=== PATIENT | female | born 1965 | race Caucasian/White ===

== ENCOUNTER 2016-08-22 15:56 | Emergency (ER) | payer BC ==
[~2016-08-22] VITALS: Ht 149.9 cm; Wt 94.2 kg
[~2016-08-22 15:56] MED LIST: ADULT LOW DOSE81 M1 PO; AMARYL2 MG PO; APTIOM800 MG PO; ASPIR-LOW81 MG PO; BENZONATATE100 MG PO; BUSPAR5 MG PO; BUTALB-APAP-CA1 EACH PO; CIPRO500 MG PO; FENOFIBRATE200 M1 PO; FIORICET,ESG1 TABLET PO; FYCOMPA PO; FYCOMPA6 MG PO; GABAPENTIN300 MG PO; GLIMEPIRIDE1 MG PO; GLIMEPIRIDE4 MG PO; GLUCOPHAGE500 MG PO; IMDUR30 MG PO; JANUVIA25 M1 PO; KEPPRA1000 MG PO; KEPPRA500 MG PO; KEPPRA750 MG PO; LAMICTAL200 MG PO; LAMOTRIGINE200 MG PO; LEXAPRO10 MG PO; LEXAPRO20 MG PO; LISINOPRIL2.5 MG PO; LOVASTATIN40 MG PO; METFORMIN HCL1000 MG PO; METRONIDAZOLE500 MG PO; MEVACOR40 MG PO; MOTRIN600 MG PO; NAPROXEN500 MG PO; NEXIUM40 MG PO; NORCO 5/3251 TABLET PO; OMEPRAZOLE40 M1 PO; ONE DAILY MULT1 EACH PO; PAROXETINE HCL20 MG PO; PROAIR HFA8.5 GM IH; RANITIDINE HCL150 MG PO; TOPAMAX100 MG PO; TOPAMAX200 MG PO; VESICARE5 MG PO; VIMPAT200 MG PO; ZOFRAN4 MG PO
[2016-08-22 16:46] LABS: EOSINOPHIL (%) 1.6 % (0-5); EOSINOPHIL COUNT 0.2 K/uL (0-0.3); HEMATOCRIT 38.1 % (36.0-46.0); IMMATURE GRANULOCYTE (%) 0.2 % (0.0-0.7); IMMATURE GRANULOCYTE COUNT 0.2 K/uL; LYMPHOCYTE COUNT 2.5 K/uL (1.0-2.8); MCH 27.7 PG (29.0-34.0); MCHC 33.6 G/DL (30.0-36.0); MCV 82.5 FL (83-99); MEAN PLAT.VOLUME 9.8 uM^3 (9.5-12.4); MONOCYTE (%) 6.7 % (3-12); MONOCYTE COUNT 0.6 K/uL (0-0.8); NEUTROPHIL (%) 64.2 % (45-76); NEUTROPHIL COUNT 5.9 K/uL (1.8-6.4); PLATELET COUNT 270 K/uL (156-360); RBC DIS.WIDTH-CV 13.2 % (11.8-14.6); RBC DIS.WIDTH-SD 38.6 % (39-53); RED BLOOD COUNT 4.62 M/uL (3.80-5.20); WHITE BLOOD COUNT 9.3 K/uL (4.1-10.2)
[2016-08-22 16:56] LABS: CHLORIDE 103 mEq/L (99-109); POTASSIUM 4.4 mEq/L (3.7-5.4); SODIUM 135 mEq/L (136-147)
[2016-08-22 17:00] LABS: ANION GAP 11 MEQ/L (2-14); TOTAL BILIRUBIN 0.2 mg/dL (0.0-1.0)
[2016-08-22 17:02] LABS: ALKALINE PHOSPHATASE 75 IU/L (3-129); GFR ESTIMATE (CALCULATED) > 59 mL/min/
[2016-08-22 17:03] LABS: UREA NITROGEN (BUN) 11 mg/dL (9-23)
[2016-08-22 17:09] LABS: GLUCOSE 518 mg/dL (70-99)
[2016-08-22 17:11] LABS: QUANTITATIVE HCG 4.4 MIU/ML
[2016-08-22 17:41] LABS: ADD MIUA? NO; BILIRUBIN NEGATIVE; BLOOD NEGATIVE; COLOR YELLOW ((YELLOW)); GLUCOSE (STRIP) >=500; KETONES NEGATIVE; LEUKOCYTES NEGATIVE; NITRITE NEGATIVE; PROTEIN (STRIP) NEGATIVE; UCUL ADDED? NO; UROBILINOGEN 0.2 MG/DL (0.2-1.0)
[2016-08-22 19:48] VITALS: BP 142/70
[2016-08-23 08:58] LABS: POINT-OF-CARE METER ID UU13113778
[2016-08-23 08:58] LABS: POINT-OF-CARE METER ID UU13113702
== END 2016-08-22 19:49 | disposition home or self-care (01) ==
LOC: EME 15:56
PROVIDERS: Emergency Medicine; Nurse Practitioner Family
DX: E11.65 Type 2 diabetes mellitus with hyperglycemia (principal); Z79.4 Long term (current) use of insulin; I10 Essential (primary) hypertension; Z79.82 Long term (current) use of aspirin
CPT/HCPCS: 80053; 81003; 82009; 82010; 82948; 84702; 85025; 99281; 99285; J7030

== ENCOUNTER 2016-08-24 21:26 | Emergency (ER) | payer BC ==
[~2016-08-24] VITALS: Ht 154.9 cm; Wt 94.3 kg
[2016-08-24 21:43] LABS: HEMATOCRIT 38.6 % (36.0-46.0); MCH 27.3 PG (29.0-34.0); MCHC 32.9 G/DL (30.0-36.0); MCV 82.8 FL (83-99); MEAN PLAT.VOLUME 9.6 uM^3 (9.5-12.4); PLATELET COUNT 224 K/uL (156-360); RBC DIS.WIDTH-CV 13.3 % (11.8-14.6); RED BLOOD COUNT 4.66 M/uL (3.80-5.20); WHITE BLOOD COUNT 8.5 K/uL (4.1-10.2)
[2016-08-24 21:55] LABS: CHLORIDE 105 mEq/L (99-109); POTASSIUM 4.7 mEq/L (3.7-5.4); SODIUM 136 mEq/L (136-147)
[2016-08-24 21:57] LABS: GLUCOSE 313 mg/dL (70-99)
[2016-08-24 21:57] LABS: POINT-OF-CARE METER ID UU13113702
[2016-08-24 21:58] LABS: ANION GAP 11 MEQ/L (2-14)
[2016-08-24 22:01] LABS: GFR ESTIMATE (CALCULATED) > 59 mL/min/
[2016-08-24 22:02] LABS: UREA NITROGEN (BUN) 15 mg/dL (9-23)
[2016-08-24 22:18] VITALS: BP 135/72
== END 2016-08-24 22:19 | disposition home or self-care (01) ==
LOC: EME 21:26
PROVIDERS: Emergency Medicine
DX: R56.9 Unspecified convulsions (principal); E11.9 Type 2 diabetes mellitus without complications; J45.909 Unspecified asthma, uncomplicated; I10 Essential (primary) hypertension; I25.2 Old myocardial infarction; K21.9 Gastro-esophageal reflux disease without esophagitis; Z79.4 Long term (current) use of insulin
CPT/HCPCS: 80048; 81003; 82948; 85027; 99281; 99285

== ENCOUNTER 2016-11-26 13:32 | Emergency (ER) | payer BC, OTHER ==
[~2016-11-26] VITALS: Ht 149.9 cm; Wt 88.4 kg
[2016-11-26 15:06] VITALS: BP 129/56
== END 2016-11-26 15:14 | disposition home or self-care (01) ==
LOC: EME 13:32
DX: G43.909 Migraine, unspecified, not intractable, without status migrainosus (principal); E11.9 Type 2 diabetes mellitus without complications; I10 Essential (primary) hypertension; I25.2 Old myocardial infarction; G40.909 Epilepsy, unspecified, not intractable, without status epilepticus; Z79.84 Long term (current) use of oral hypoglycemic drugs; Z88.8 Allergy status to other drugs, medicaments and biological substances
CPT/HCPCS: 99281; 99284; J1885; J7030

== ENCOUNTER 2016-12-11 14:34 | Observation (INO) | payer BC, OTHER ==
[~2016-12-11] VITALS: Ht 149.9 cm; Wt 89.5 kg
[2016-12-11 15:59] LABS: EOSINOPHIL (%) 2.4 % (0-5); EOSINOPHIL COUNT 0.2 K/uL (0-0.3); HEMATOCRIT 37.3 % (36.0-46.0); IMMATURE GRANULOCYTE (%) 0.4 % (0.0-0.7); INSTRUMENT ABS NEUTROPHIL CT 3.7 K/uL; LYMPHOCYTE COUNT 2.4 K/uL (1.0-2.8); MCH 26.9 PG (29.0-34.0); MCHC 31.6 G/DL (30.0-36.0); MEAN PLAT.VOLUME 9.5 uM^3 (9.5-12.4); MONOCYTE (%) 5.9 % (3-12); MONOCYTE COUNT 0.4 K/uL (0-0.8); NEUTROPHIL (%) 55.4 % (45-76); NEUTROPHIL COUNT 3.7 K/uL (1.8-6.4); PLATELET COUNT 240 K/uL (156-360); RBC DIS.WIDTH-CV 13.4 % (11.8-14.6); RBC DIS.WIDTH-SD 41.6 % (39-53); RED BLOOD COUNT 4.39 M/uL (3.80-5.20); WHITE BLOOD COUNT 6.7 K/uL (4.1-10.2)
[2016-12-11 16:09] LABS: CHLORIDE 109 mEq/L (99-109); POTASSIUM 3.7 mEq/L (3.7-5.4); SODIUM 139 mEq/L (136-147)
[2016-12-11 16:11] LABS: GLUCOSE 116 mg/dL (70-99)
[2016-12-11 16:12] LABS: ANION GAP 8 MEQ/L (2-14)
[2016-12-11 16:15] LABS: GFR ESTIMATE (CALCULATED) > 59 mL/min/
[2016-12-11 16:16] LABS: UREA NITROGEN (BUN) 16 mg/dL (9-23)
[2016-12-11 16:21] LABS: TROP-I INTERPRETATION NEGATIVE; TROPONIN-I < 0.01 ng/mL (0.0-0.30)
[2016-12-11] MEDS ORDERED: KEPPRA750 MG PO (17:50)
[2016-12-11] MEDS ORDERED: JANUMET 50/11 TABLET PO (17:52)
[2016-12-11] MEDS ORDERED: HUMALOG100 UNIT/2 SC (17:52)
[2016-12-11] MEDS ORDERED: LANTUS 3 M100 UNITS1 SC (17:53)
[2016-12-11] MEDS ORDERED: KEPPRA1000 MG PO (17:53)
[2016-12-11 20:01] VITALS: BP 119/60
[2016-12-11 22:27] LABS: TROP-I INTERPRETATION NEGATIVE; TROPONIN-I < 0.01 ng/mL (0.0-0.30)
[2016-12-11 23:11] LABS: POINT-OF-CARE METER ID UU13113700
[2016-12-11 23:50] VITALS: BP 106/57
[2016-12-12 04:45] VITALS: BP 100/53
[2016-12-12 07:16] VITALS: BP 95/54
[2016-12-12 07:18] LABS: HEMATOCRIT 36.6 % (36.0-46.0); MCH 26.8 PG (29.0-34.0); MCHC 30.9 G/DL (30.0-36.0); MCV 86.9 FL (83-99); MEAN PLAT.VOLUME 9.5 uM^3 (9.5-12.4); PLATELET COUNT 226 K/uL (156-360); RBC DIS.WIDTH-CV 13.5 % (11.8-14.6); RBC DIS.WIDTH-SD 43.3 % (39-53); RED BLOOD COUNT 4.21 M/uL (3.80-5.20); WHITE BLOOD COUNT 6.7 K/uL (4.1-10.2)
[2016-12-12 07:55] LABS: ANION GAP 8 MEQ/L (2-14); CHLORIDE 109 MEQ/L (99-109); GFR ESTIMATE (CALCULATED) > 59 mL/min/; GLUCOSE 136 mg/dL (70-99); POTASSIUM 4.1 MEQ/L (3.7-5.4); SAMPLE HEMOLYSIS CHECK 0; SAMPLE ICTERIC CHECK 0; SAMPLE LIPEMIA CHECK 0; SODIUM 142 MEQ/L (136-147); UREA NITROGEN (BUN) 16 mg/dL (9-23)
[2016-12-12 08:26] LABS: POINT-OF-CARE METER ID UU13113700
[2016-12-12 08:39] LABS: TROP-I INTERPRETATION NEGATIVE; TROPONIN-I < 0.01 ng/mL (0.0-0.30)
[2016-12-12 12:34] LABS: POINT-OF-CARE METER ID UU13113700
[2016-12-12 12:53] VITALS: BP 99/52
== END 2016-12-12 15:06 | disposition home or self-care (01) ==
LOC: EME 14:34 → EDOF 17:57 → 5WEST 17:57 → EDOF 17:57 → 5WEST 19:42
PROVIDERS: Emergency Medicine; Hospitalist; Internal Medicine
DX: R07.9 Chest pain, unspecified (principal); E78.5 Hyperlipidemia, unspecified; E11.9 Type 2 diabetes mellitus without complications; G40.909 Epilepsy, unspecified, not intractable, without status epilepticus; G43.909 Migraine, unspecified, not intractable, without status migrainosus; E66.9 Obesity, unspecified; Z68.39 Body mass index [BMI] 39.0-39.9, adult; I25.10 Atherosclerotic heart disease of native coronary artery without angina pectoris; I25.2 Old myocardial infarction; F41.9 Anxiety disorder, unspecified; F32.9 Major depressive disorder, single episode, unspecified; J45.909 Unspecified asthma, uncomplicated; I11.9 Hypertensive heart disease without heart failure; K21.9 Gastro-esophageal reflux disease without esophagitis
CPT/HCPCS: 71010; 80048; 82948; 84484; 85025; 85027; 93005; 99281; 99285; G0378; J1650; J3010

== ENCOUNTER 2017-01-25 14:11 | Emergency (ER) | payer BC, OTHER ==
[~2017-01-25] VITALS: Ht 149.9 cm; Wt 91.0 kg
[~2017-01-25 14:11] MED LIST changes: +HUMALOG100 UNIT/2 SC; +JANUMET 50/11 TABLET PO; +LANTUS 3 M100 UNITS1 SC
[2017-01-25 14:26] LABS: POINT-OF-CARE METER ID UU13113778
[2017-01-25 14:57] LABS: HEMATOCRIT 39.2 % (36.0-46.0); MCH 27.6 PG (29.0-34.0); MCHC 32.1 G/DL (30.0-36.0); MEAN PLAT.VOLUME 9.6 uM^3 (9.5-12.4); PLATELET COUNT 277 K/uL (156-360); RBC DIS.WIDTH-CV 13.2 % (11.8-14.6); RBC DIS.WIDTH-SD 41.5 % (39-53); RED BLOOD COUNT 4.56 M/uL (3.80-5.20); WHITE BLOOD COUNT 10.4 K/uL (4.1-10.2)
[2017-01-25 15:09] LABS: CHLORIDE 100 mEq/L (99-109); POTASSIUM 4.8 mEq/L (3.7-5.4); SODIUM 133 mEq/L (136-147)
[2017-01-25 15:11] LABS: GLUCOSE 338 mg/dL (70-99)
[2017-01-25 15:12] LABS: ANION GAP 8 MEQ/L (2-14)
[2017-01-25 15:13] LABS: TOTAL BILIRUBIN 0.3 mg/dL (0.0-1.0)
[2017-01-25 15:14] LABS: ALKALINE PHOSPHATASE 56 IU/L (3-129)
[2017-01-25 15:15] LABS: GFR ESTIMATE (CALCULATED) > 59 mL/min/
[2017-01-25 15:16] LABS: UREA NITROGEN (BUN) 16 mg/dL (9-23)
[2017-01-25 15:43] LABS: ADD MIUA? YES; BILIRUBIN NEGATIVE; BLOOD NEGATIVE; COLOR YELLOW ((YELLOW)); GLUCOSE (STRIP) >=500; KETONES NEGATIVE; LEUKOCYTES MODERATE; NITRITE NEGATIVE; PROTEIN (STRIP) 30; SPECIFIC GRAVITY 1.023 (1.000-1.030); UROBILINOGEN 0.2 MG/DL (0.2-1.0)
[2017-01-25 15:43] LABS: CARBON DIOXIDE (BICARBONATE) 29.2 MEQ/L (20-31)
[2017-01-25 15:45] LABS: POINT-OF-CARE METER ID UU13113800
[2017-01-25 16:26] LABS: BACTERIA NONE SEEN /HPF; EPITHELIAL CELLS 1+ /HPF; MUCUS NONE SEEN /LPF; RED BLOOD CELLS 0-5 /HPF (0-5); UCUL ADDED? NO
[2017-01-25 17:08] LABS: POINT-OF-CARE METER ID UU13113800
[2017-01-25 18:08] VITALS: BP 145/95
== END 2017-01-25 18:09 | disposition home or self-care (01) ==
LOC: EME 14:11
PROVIDERS: Physician Assistant
DX: E11.65 Type 2 diabetes mellitus with hyperglycemia (principal); G40.909 Epilepsy, unspecified, not intractable, without status epilepticus; M79.604 Pain in right leg; Z79.4 Long term (current) use of insulin; I10 Essential (primary) hypertension; I25.2 Old myocardial infarction; J45.909 Unspecified asthma, uncomplicated; F32.9 Major depressive disorder, single episode, unspecified; K21.9 Gastro-esophageal reflux disease without esophagitis
CPT/HCPCS: 71020; 80048 91; 80053; 81003; 82010; 82803; 82948; 83036; 84100; 85027; 99281; 99284; J2405; J7030

== ENCOUNTER 2017-02-19 14:43 | Emergency (ER) | payer BC, OTHER ==
[~2017-02-19] VITALS: Ht 149.9 cm; Wt 91.4 kg
[2017-02-19 15:04] LABS: POINT-OF-CARE METER ID UU13113747
[2017-02-19 15:30] LABS: EOSINOPHIL (%) 2.7 % (0-5); EOSINOPHIL COUNT 0.2 K/uL (0-0.3); HEMATOCRIT 34.2 % (36.0-46.0); IMMATURE GRANULOCYTE (%) 0.9 % (0.0-0.7); IMMATURE GRANULOCYTE COUNT 0.1 K/uL; INSTRUMENT ABS NEUTROPHIL CT 3.9 K/uL; LYMPHOCYTE COUNT 1.8 K/uL (1.0-2.8); MCH 27.5 PG (29.0-34.0); MCHC 31.9 G/DL (30.0-36.0); MCV 86.4 FL (83-99); MEAN PLAT.VOLUME 9.5 uM^3 (9.5-12.4); MONOCYTE (%) 7.4 % (3-12); MONOCYTE COUNT 0.5 K/uL (0-0.8); NEUTROPHIL (%) 60.8 % (45-76); NEUTROPHIL COUNT 3.9 K/uL (1.8-6.4); PLATELET COUNT 197 K/uL (156-360); RBC DIS.WIDTH-CV 13.4 % (11.8-14.6); RED BLOOD COUNT 3.96 M/uL (3.80-5.20); WHITE BLOOD COUNT 6.4 K/uL (4.1-10.2)
[2017-02-19 15:42] LABS: CHLORIDE 106 mEq/L (99-109); POTASSIUM 3.8 mEq/L (3.7-5.4); SODIUM 135 mEq/L (136-147)
[2017-02-19 15:44] LABS: GLUCOSE 360 mg/dL (70-99)
[2017-02-19 15:46] LABS: ANION GAP 9 MEQ/L (2-14); TOTAL BILIRUBIN 0.3 mg/dL (0.0-1.0)
[2017-02-19 15:48] LABS: ADD MIUA? YES; BILIRUBIN NEGATIVE; BLOOD NEGATIVE; COLOR YELLOW ((YELLOW)); GLUCOSE (STRIP) >=500; KETONES NEGATIVE; LEUKOCYTES TRACE; NITRITE NEGATIVE; PROTEIN (STRIP) NEGATIVE; SPECIFIC GRAVITY 1.018 (1.000-1.030); UROBILINOGEN 0.2 MG/DL (0.2-1.0)
[2017-02-19 15:48] LABS: ALKALINE PHOSPHATASE 49 IU/L (3-129); GFR ESTIMATE (CALCULATED) > 59 mL/min/
[2017-02-19 15:49] LABS: UREA NITROGEN (BUN) 14 mg/dL (9-23)
[2017-02-19 15:59] LABS: BACTERIA NONE SEEN /HPF; EPITHELIAL CELLS 1+ /HPF; MUCUS TRACE /LPF; RED BLOOD CELLS 0-5 /HPF (0-5); UCUL ADDED? NO; WHITE BLOOD CELLS 0-5 /HPF (0-5)
[2017-02-19 17:06] LABS: POINT-OF-CARE METER ID UU13113747
[2017-02-19 18:11] VITALS: BP 120/61
== END 2017-02-19 18:12 | disposition home or self-care (01) ==
LOC: EME 14:43
PROVIDERS: Emergency Medicine
DX: G40.909 Epilepsy, unspecified, not intractable, without status epilepticus (principal); E11.65 Type 2 diabetes mellitus with hyperglycemia; Z79.4 Long term (current) use of insulin; I10 Essential (primary) hypertension; Z79.82 Long term (current) use of aspirin
CPT/HCPCS: 80053; 81003; 82948; 85025; 99281; 99284

== ENCOUNTER 2017-03-06 13:33 | Emergency (ER) | payer BC, OTHER ==
[~2017-03-06] VITALS: Ht 149.9 cm; Wt 89.7 kg
[2017-03-06 14:44] LABS: MCH 27.3 PG (29.0-34.0); MCHC 31.6 G/DL (30.0-36.0); MCV 86.4 FL (83-99); MEAN PLAT.VOLUME 9.7 uM^3 (9.5-12.4); PLATELET COUNT 208 K/uL (156-360); RBC DIS.WIDTH-CV 13.2 % (11.8-14.6); RBC DIS.WIDTH-SD 41.4 % (39-53); RED BLOOD COUNT 4.28 M/uL (3.80-5.20); WHITE BLOOD COUNT 7.3 K/uL (4.1-10.2)
[2017-03-06 14:49] LABS: POINT-OF-CARE METER ID UU13113747
[2017-03-06 14:54] LABS: CHLORIDE 107 mEq/L (99-109); POTASSIUM 4.3 mEq/L (3.7-5.4); SODIUM 138 mEq/L (136-147)
[2017-03-06 14:57] LABS: ANION GAP 10 MEQ/L (2-14)
[2017-03-06 14:59] LABS: GFR ESTIMATE (CALCULATED) > 59 mL/min/
[2017-03-06 15:00] LABS: UREA NITROGEN (BUN) 9 mg/dL (9-23)
[2017-03-06 15:12] LABS: GLUCOSE 402 mg/dL (70-99)
[2017-03-06 16:50] LABS: POINT-OF-CARE METER ID UU13113747
[2017-03-06 17:05] VITALS: BP 142/87
== END 2017-03-06 17:21 | disposition home or self-care (01) ==
LOC: EME 13:33
PROVIDERS: Emergency Medicine
DX: E11.65 Type 2 diabetes mellitus with hyperglycemia (principal); G40.909 Epilepsy, unspecified, not intractable, without status epilepticus; I10 Essential (primary) hypertension; K21.9 Gastro-esophageal reflux disease without esophagitis; Z79.4 Long term (current) use of insulin
CPT/HCPCS: 80048; 82948; 85027; 99281; 99285; J7030

== ENCOUNTER 2017-03-31 16:49 | Emergency (ER) | payer BC, OTHER ==
[~2017-03-31] VITALS: Ht 149.9 cm; Wt 89.5 kg
[2017-03-31 18:23] LABS: HEMATOCRIT 38.9 % (36.0-46.0); MCH 27.2 PG (29.0-34.0); MCHC 31.6 G/DL (30.0-36.0); MCV 86.1 FL (83-99); MEAN PLAT.VOLUME 9.2 uM^3 (9.5-12.4); PLATELET COUNT 258 K/uL (156-360); RBC DIS.WIDTH-CV 13.2 % (11.8-14.6); RBC DIS.WIDTH-SD 40.9 % (39-53); RED BLOOD COUNT 4.52 M/uL (3.80-5.20); WHITE BLOOD COUNT 9.6 K/uL (4.1-10.2)
[2017-03-31 18:33] LABS: CHLORIDE 109 mEq/L (99-109); SODIUM 141 mEq/L (136-147)
[2017-03-31 18:35] LABS: GLUCOSE 102 mg/dL (70-99)
[2017-03-31 18:36] LABS: ANION GAP 12 MEQ/L (2-14)
[2017-03-31 18:37] LABS: TOTAL BILIRUBIN 0.3 mg/dL (0.0-1.0)
[2017-03-31 18:38] LABS: ALKALINE PHOSPHATASE 44 IU/L (3-129)
[2017-03-31 18:39] LABS: GFR ESTIMATE (CALCULATED) 51 mL/min/
[2017-03-31 18:40] LABS: UREA NITROGEN (BUN) 16 mg/dL (9-23)
[2017-03-31 18:43] LABS: TROP-I INTERPRETATION NEGATIVE; TROPONIN-I < 0.01 ng/mL (0.0-0.30)
[2017-03-31 21:57] LABS: TROP-I INTERPRETATION NEGATIVE; TROPONIN-I < 0.01 ng/mL (0.0-0.30)
[2017-03-31] MEDS ORDERED: ULTRACET1 TABLET PO (22:47)
[2017-03-31 22:48] VITALS: BP 121/80
[2017-03-31] MEDS ORDERED: NAPROXEN500 MG PO (22:54)
== END 2017-03-31 23:00 | disposition home or self-care (01) ==
LOC: EME 16:49
PROVIDERS: Nurse Practitioner Family; Physician Assistant Medical
DX: R07.9 Chest pain, unspecified (principal); Q24.5 Malformation of coronary vessels; E11.9 Type 2 diabetes mellitus without complications; I10 Essential (primary) hypertension; K21.9 Gastro-esophageal reflux disease without esophagitis; R56.9 Unspecified convulsions; Z79.4 Long term (current) use of insulin; Z79.82 Long term (current) use of aspirin
CPT/HCPCS: 71020; 80053; 84484; 85027; 93005; 99281; 99284; J2270

== ENCOUNTER 2017-10-11 20:04 | Emergency (ER) | payer BC, OTHER ==
[~2017-10-11] VITALS: Ht 149.9 cm; Wt 83.6 kg
[~2017-10-11 20:04] MED LIST changes: +PREDNISONE50 MG PO; +TUSSIONEX PENN473 ML PO; +ULTRACET1 TABLET PO
[2017-10-11 21:28] LABS: APPEARANCE CLEAR ((CLEAR)); BILIRUBIN NEGATIVE; BLOOD NEGATIVE; COLOR YELLOW ((YELLOW)); GLUCOSE (STRIP) NEGATIVE; KETONES NEGATIVE; LEUKOCYTES MODERATE; NITRITE NEGATIVE; PROTEIN (STRIP) NEGATIVE; SPECIFIC GRAVITY 1.011 (1.000-1.030); UROBILINOGEN 0.2 MG/DL (0.2-1.0)
[2017-10-11 21:30] LABS: CHLORIDE 109 mEq/L (99-109); POTASSIUM 3.6 mEq/L (3.7-5.4); SODIUM 141 mEq/L (136-147)
[2017-10-11 21:32] LABS: BACTERIA RARE /HPF; EPITHELIAL CELLS 1+ /HPF; MUCUS TRACE /LPF; UCUL ADDED? YES; WHITE BLOOD CELLS 20-30 /HPF (0-5)
[2017-10-11 21:32] LABS: GLUCOSE 105 mg/dL (70-99)
[2017-10-11 21:36] LABS: CREATININE 0.8 mg/dL (0.6-1.3); GFR ESTIMATE (CALCULATED) > 59 mL/min/
[2017-10-11 21:37] LABS: UREA NITROGEN (BUN) 14 mg/dL (9-23)
[2017-10-11] MEDS ORDERED: MACROBID100 MG PO (22:00)
[2017-10-11 23:15] VITALS: BP 134/79
== END 2017-10-11 23:16 | disposition home or self-care (01) ==
LOC: EME 20:04
PROVIDERS: Emergency Medicine
DX: R56.9 Unspecified convulsions (principal); N39.0 Urinary tract infection, site not specified; I10 Essential (primary) hypertension; E11.9 Type 2 diabetes mellitus without complications; Z79.4 Long term (current) use of insulin; K21.9 Gastro-esophageal reflux disease without esophagitis; G43.909 Migraine, unspecified, not intractable, without status migrainosus; F32.9 Major depressive disorder, single episode, unspecified; F41.9 Anxiety disorder, unspecified; I25.2 Old myocardial infarction; Z79.82 Long term (current) use of aspirin; Z88.8 Allergy status to other drugs, medicaments and biological substances
CPT/HCPCS: 70450; 80048; 81003; 87086; 99281; 99285

== ENCOUNTER 2017-11-02 17:33 | Emergency (ER) | payer OTHER, BC ==
[~2017-11-02] VITALS: Ht 149.9 cm; Wt 81.8 kg
[~2017-11-02 17:33] MED LIST changes: +MACROBID100 MG PO
[2017-11-02 20:56] VITALS: BP 103/59
== END 2017-11-02 20:58 | disposition home or self-care (01) ==
LOC: EME 17:33
DX: S30.0XXA Contusion of lower back and pelvis, initial encounter (principal); M54.2 Cervicalgia; V49.50XA Passenger injured in collision with unspecified motor vehicles in traffic accident, initial encounter; Y92.410 Unspecified street and highway as the place of occurrence of the external cause; I25.2 Old myocardial infarction; K21.9 Gastro-esophageal reflux disease without esophagitis; I10 Essential (primary) hypertension; F41.9 Anxiety disorder, unspecified; F32.9 Major depressive disorder, single episode, unspecified; E11.9 Type 2 diabetes mellitus without complications; G40.909 Epilepsy, unspecified, not intractable, without status epilepticus; Z79.4 Long term (current) use of insulin; Z79.82 Long term (current) use of aspirin; Z88.8 Allergy status to other drugs, medicaments and biological substances
CPT/HCPCS: 70450; 72100; 72125; 99281; 99284

== ENCOUNTER 2017-12-28 17:01 | Inpatient (IN) | payer BC, OTHER ==
[~2017-12-28] VITALS: Ht 149.9 cm; Wt 83.2 kg
[2017-12-28 17:54] LABS: AMPHETAMINE NEGATIVE (500 ng/mL); BARBITURATES PRESUMPTIVE POSITIVE (200 ng/mL); BENZODIAZEPINES NEGATIVE (150 ng/mL); BUPRENORPHINE NEGATIVE (10 ng/mL); COCAINE NEGATIVE (150 ng/mL); METHADONE NEGATIVE (200 ng/mL); METHAMPHETAMINE NEGATIVE (500 ng/mL); OPIATES (MORPHINE) NEGATIVE (100 ng/mL); OXYCODONE NEGATIVE (100 ng/mL); PHENCYCLIDINE NEGATIVE (25 ng/mL); PROPOXYPHENE NEGATIVE (300 ng/mL); THC CANNABINOIDS NEGATIVE (50 ng/mL); TRICYCLIC ANTIDEPRESSANTS NEGATIVE (300 ng/mL)
[2017-12-28 18:07] LABS: HEMATOCRIT 40.9 % (36.0-46.0); HEMOGLOBIN 13.3 G/DL (11.9-15.5); MCH 28.9 PG (29.0-34.0); MCHC 32.5 G/DL (30.0-36.0); MCV 88.7 FL (83-99); PLATELET COUNT 305 K/uL (156-360); RBC DIS.WIDTH-CV 13.3 % (11.8-14.6); RBC DIS.WIDTH-SD 43.3 % (39-53); RED BLOOD COUNT 4.61 M/uL (3.80-5.20); WHITE BLOOD COUNT 9.6 K/uL (4.1-10.2)
[2017-12-28 18:15] LABS: CHLORIDE 106 mEq/L (99-109); POTASSIUM 4.1 mEq/L (3.7-5.4)
[2017-12-28 18:16] LABS: SODIUM 139 mEq/L (136-147)
[2017-12-28 18:17] LABS: GLUCOSE 184 mg/dL (70-99)
[2017-12-28 18:20] LABS: SERUM ETHYL ALCOHOL < 10 mg/dL
[2017-12-28 18:21] LABS: CREATININE 1.1 mg/dL (0.6-1.3); GFR ESTIMATE (CALCULATED) 56 mL/min/
[2017-12-28 18:22] LABS: UREA NITROGEN (BUN) 15 mg/dL (9-23)
[2017-12-28 18:29] LABS: TROP-I INTERPRETATION NEGATIVE; TROPONIN-I < 0.01 ng/mL (0.0-0.30)
[2017-12-28] MEDS ORDERED: TRULICITY1.5 MG/0.5 SC (20:47)
[2017-12-28] MEDS ORDERED: FYCOMPA PO (20:48)
[2017-12-28] MEDS ORDERED: KEPPRA500 MG PO (20:49)
[2017-12-28] MEDS ORDERED: RANEXA500 MG PO (20:50)
[2017-12-28] MEDS ORDERED: NOVOLOG 10100 UNITS/ SC ×3 (21:53→23:19)
[2017-12-28 22:35] VITALS: BP 160/94
[2017-12-28] MEDS ORDERED: TOPAMAX200 MG PO (23:14)
[2017-12-28] MEDS ORDERED: BUSPAR10 MG PO (23:14)
[2017-12-28 23:49] VITALS: BP 128/65
[2017-12-29 07:53] VITALS: BP 131/70
[2017-12-29] MEDS ORDERED: NOVOLOG 10100 UNITS/ SC ×2 (09:04→09:05)
[2017-12-29 16:23] VITALS: BP 121/65
[2017-12-30 08:31] VITALS: BP 97/54
[2017-12-30 15:56] VITALS: BP 127/60
[2017-12-31 08:20] VITALS: BP 99/64
[2017-12-31 16:48] VITALS: BP 118/91
[2018-01-01 07:47] VITALS: BP 111/60
[2018-01-01 16:45] VITALS: BP 128/61
[2018-01-02 07:49] VITALS: BP 94/57
[2018-01-02] MEDS ORDERED: BUSPAR10 MG PO (09:43)
== END 2018-01-02 13:06 | disposition home or self-care (01) | DRG 882 ==
LOC: EME 17:01 → EDOF 19:43 → 1WEST 19:43 → ENRESERV 20:30 → 1WEST 21:17
PROVIDERS: Psychiatry & Neurology Psychiatry
DX: F43.23 Adjustment disorder with mixed anxiety and depressed mood (principal); F33.9 Major depressive disorder, recurrent, unspecified; F44.5 Conversion disorder with seizures or convulsions; R45.851 Suicidal ideations; G40.909 Epilepsy, unspecified, not intractable, without status epilepticus; Z62.821 Parent-adopted child conflict; I25.10 Atherosclerotic heart disease of native coronary artery without angina pectoris; I10 Essential (primary) hypertension; E11.65 Type 2 diabetes mellitus with hyperglycemia; E78.5 Hyperlipidemia, unspecified; E66.9 Obesity, unspecified; Z68.37 Body mass index [BMI] 37.0-37.9, adult; K21.9 Gastro-esophageal reflux disease without esophagitis; I25.2 Old myocardial infarction; Z95.5 Presence of coronary angioplasty implant and graft; Z79.4 Long term (current) use of insulin; Z83.3 Family history of diabetes mellitus; Z82.49 Family history of ischemic heart disease and other diseases of the circulatory system
CPT/HCPCS: 71046; 80048; 82948; 84484; 84999; 85027; 90839; 93005; 97150 GO; 97165 GO; 99281; 99285; G0480; J1815; J2060